=== PATIENT | male | born 1955 | race Caucasian/White ===

== ENCOUNTER 2019-11-19 16:39 | Inpatient (IN) | payer MEDICARE, SELFPAY ==
[2019-11-19 16:53] VITALS: BP 209/123; PULSE 62; RESP 17; TEMP 36.4; O2SAT 99; BMI 24.1
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
--- NOTE | 2019-11-19 16:57 | ECG_ITS ---
Measurements Intervals [employer] Rate: 58 P: 36 DE: 184 QRS: 19 QRSD: 113 T: 42 QT: 411 QTc: 405 SINUS BRADYCARDIA MODERATE INTRAVENTRICULAR CONDUCTION DELAY [110+ ms QRS DURATION] No previous ECG available for comparison Electronically Signed On 11-20-2019 14:59:13 CDT by Sachin Singletary M.D. [email or web address]
--- NOTE | 2019-11-19 16:57 | XRR_ITS ---
PROCEDURE INFORMATION: Exam: XR Chest, 1 View Exam date and time: 11/19/2019 4:58 PM Age: 64 years old Clinical indication: Pain; Shortness of breath; Chest pressure; Additional info: Dyspnea/cough TECHNIQUE: Imaging protocol: XR of the chest Views: 1 view. COMPARISON: No relevant prior studies available. FINDINGS: Lungs: Unremarkable. No consolidation. Pleural space: Unremarkable. No pleural effusion. No pneumothorax. Heart/Mediastinum: Calcified left hilar lymph nodes. Bones/joints: Unremarkable. C-spine hardware. XR/XR chest 1V portable [id number] IMPRESSION: No acute findings.
[2019-11-19 17:34] VITALS: BP 212/105; PULSE 65; RESP 14; O2SAT 99
[2019-11-19] MEDS: aspirin 81 mg Chew Tablet 324 MG PO (17:38)
[2019-11-19] MEDS: amlodipine 5 mg Tablet PO (17:39)
[2019-11-19] MEDS: nitroglycerin 1 gm/inch oint Pkt 1 INCH TOPICAL (17:44)
[2019-11-19 17:48] LABS: Basophils % 0.5 %; Eosinophils % 0.5 %; Hematocrit 41.2 % (42.0-52.0); Hemoglobin 13.6 g/dL (11.7-16.6); Lymphocytes # 0.8 10^3/uL (0.8-4.8); Lymphocytes % 13.8 %; Mean Corpuscular Hemoglobin 29.6 pg (28.0-34.0); Mean Corpuscular Volume 89.6 fL (80-94); Mean Platelet Volume 10.3 fL (7.4-10.4); Monocytes # 0.3 10^3/uL (0.2-0.9); Monocytes % 4.8 %; Neutrophils # 4.9 10^3/uL (1.8-7.7); Neutrophils % 80.2 %; Nucleated Red Blood Cells % 0 %; Platelet Count 193 10^3/cmm (130-400); Red Cell Distribution Width 11.8 % (12.1-15.1); White Blood Count 6.1 10^3/uL (4.0-10.0)
[2019-11-19 18:09] LABS: Alanine Aminotransferase 16 U/L (0-41); Albumin Level 4.2 g/dL (3.5-5.2); Alkaline Phosphatase 79 IU/L (40-130); Anion Gap 14.1 (5-19); Aspartate Amino Transferase 20 U/L (0-40); Blood Urea Nitrogen 7 mg/dL (8-23); Calcium 8.9 mg/dL (8.5-10.5); Carbon Dioxide 27 mmol/L (22-29); Chloride 101 mmol/L (98-107); Creatinine Clr Calc Pharmacy 91.2681; Globulin 2.2 g/dL (1.3-4.6); Glomerular Filtration Rate 84.7 mL/min (90-130); Glucose 103 mg/dL (65-115); Lipase 25 U/L (13-60); Osmolality Calculated 282 mOsm/kg (285-295); Potassium 4.1 mmol/L (3.5-5.1); Sodium 138 mmol/L (136-145); Total Bilirubin 0.8 mg/dL (0.15-1.2); Total Protein 6.4 g/dL (6.6-8.7)
[2019-11-19 18:11] LABS: Troponin(5th) Baseline 7 ng/mL (0-15)
[2019-11-19 18:41] VITALS: BP 196/109; PULSE 64; RESP 13; O2SAT 97
--- NOTE | 2019-11-19 18:57 | ECG_ITS ---
Measurements Intervals [place] Rate: 62 P: 19 NE: 182 QRS: 1 QRSD: 109 T: 32 QT: 413 QTc: 422 SINUS RHYTHM No previous ECG available for comparison Electronically Signed On 11-20-2019 15:02:22 CDT by Sachin Singletary M.D. [email or web address]
[2019-11-19] MEDS: hyDRALAzine 20 mg/mL INJ 1 mL IVP (19:02)
--- NOTE | 2019-11-19 19:33 | CTR_ITS ---
PROCEDURE INFORMATION: Exam: CT Head Without Contrast Exam date and time: 11/19/2019 7:37 PM Age: 64 years old Clinical indication: Dizziness; Additional info: Dizzy TECHNIQUE: Imaging protocol: Computed tomography of the head without contrast. Total DLP: 900.94 mGy-cm Radiation optimization: All CT scans at this facility use at least one of these dose optimization techniques: automated exposure control; mA and/or kV adjustment per patient size (includes targeted exams where dose is matched to clinical indication); or iterative reconstruction. COMPARISON: No relevant prior studies available. FINDINGS: Brain: Mild cortical volume loss. Mild hypodensities in supratentorial periventricular and subcortical white matter. No intracranial hemorrhage. Ventricles: Normal. No ventriculomegaly. Bones/joints: Unremarkable. No acute fracture. Sinuses: Visualized sinuses are unremarkable. No fluid levels. Mastoid air cells: Postsurgical changes of the right mastoid. Soft tissues: Unremarkable. Vasculature: No hyperdense artery. CT/CT head wo con* [id number] IMPRESSION: 1. No acute intracranial abnormality. 2. Mild microangiopathy. Radiation Dose CTDIVOL = (mGy): DLP = 900.94 (mGy-cm)
[2019-11-19 19:41] LABS: Urine Appearance Clear (CLEAR); Urine Color Yellow (Yellow); pH Urine 7 (5-7)
[2019-11-19 19:42] LABS: Add Urine Culture? No; Add Urine Microscopic? YES; Bacteria Urine TRACE; Bilirubin Urine Neg (NEGATIVE); Blood Urine 2+ (Negative); Glucose Urine UA Norm (Normal); Ketones Urine Negative (Negative); Leukocyte Esterase Urine Negative (Negative); Nitrate Urine Negative (Negative); Protein Urine Neg (Negative); Specific Gravity, Urine 1.005 (1.005-1.030); Urobilinogen Urine Norm (Negative)
[2019-11-19 19:47] LABS: Troponin 5 2HR 6.97 ng/mL (0-15)
[2019-11-19 19:48] LABS: Troponin 5 2HR Delta -0.03 ABS# (0-10)
[2019-11-19 21:05] VITALS: BP 155/90; PULSE 92; RESP 20; O2SAT 97
[2019-11-19 21:38] VITALS: BP 151/93; PULSE 80; RESP 20; O2SAT 97
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
--- NOTE | 2019-11-19 22:55 | PC.NURSE ---
EKG done at 2250 and shown to ER doctor.
--- NOTE | 2019-11-19 22:57 | ECG_ITS ---
Measurements Intervals [place] Rate: 85 P: 39 MA: 152 QRS: 23 QRSD: 105 T: 40 QT: 365 QTc: 434 SINUS RHYTHM No previous ECG available for comparison Electronically Signed On 11-20-2019 15:02:28 CDT by Sachin Singletary M.D. [email or web address]
[2019-11-19 23:02] VITALS: BP 148/96; PULSE 93; RESP 15; O2SAT 95
--- NOTE | 2019-11-19 23:06 | CTR_ITS ---
PROCEDURE INFORMATION: Exam: CT Angiography Chest With Contrast Exam date and time: 11/19/2019 11:36 PM Age: 64 years old Clinical indication: Shortness of breath; Prior surgery; Surgery type: Cervical fusion; Patient HX: SOB without chest pain; Additional info: Chest pain dizzy HTN TECHNIQUE: Imaging protocol: Computed tomographic angiography of the chest with intravenous contrast. 3D rendering: MIP and/or 3D reconstructed images were created by the technologist. Total DLP: 568.07 mGy-cm Radiation optimization: All CT scans at this facility use at least one of these dose optimization techniques: automated exposure control; mA and/or kV adjustment per patient size (includes targeted exams where dose is matched to clinical indication); or iterative reconstruction. Contrast material: OMNI 350; Contrast volume: 75 ml; Contrast route: 20G RAC; COMPARISON: CR (CHEST, ) 11/19/2019 5:00 PM FINDINGS: Pulmonary arteries: Left upper lobe prominent pulmonary artery branch appears chronic and may reflect a very small aneurysm measuring approximately 6.3 mm. Aorta: Unremarkable. No aortic aneurysm. No aortic dissection. Lungs: Unremarkable. No consolidation. No masses. Pleural space: Unremarkable. No pneumothorax. No pleural effusion. Heart: Unremarkable. No cardiomegaly. No pericardial effusion. Lymph nodes: Unremarkable. No enlarged lymph nodes. Bones/joints: Unremarkable. No acute fracture. Soft tissues: Unremarkable. CT/CT angio chest PE protcl [id number] IMPRESSION: Negative for pulmonary embolus or airspace infiltrate. Radiation Dose CTDIVOL = (mGy): DLP = 568.07 (mGy-cm)
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
[2019-11-19] MEDS: morphine 4 mg/mL SDV 1 mL 2 MG IVP (23:41)
[2019-11-19] MEDS: ondansetron 2 mg/ML SDV 2 mL 4 MG IVP (23:41)
[2019-11-19] MEDS: iohexol 350 mg/mL 100 mL Btl IV ×2 (23:52→23:59)
[2019-11-20] VITALS (13 sets, daily range): BP systolic 147–182; BP diastolic 81–100; PULSE 60–81; RESP 16–19; TEMP 36.6–37.7; O2SAT 94–99
[2019-11-20 00:17] LABS: Troponin 5 6HR 8.98 ng/mL (0-15); Troponin 5 6HR Delta 1.98 ng/L (0-12)
[2019-11-20] MEDS: morphine 4 mg/mL SDV 1 mL 2 MG IVP ×2 (01:42→09:06)
[2019-11-20] MEDS: enoxaparin 40 mg/0.4 mL Syringe SUBCUT (01:42)
[2019-11-20] MEDS: sodium chloride 0.9% 1,000 ML 75 ML IV (01:43)
[2019-11-20 01:55] LABS: Thyroid Stimulating Hormone 1.12 uIU/mL (0.27-4.20)
--- NOTE | 2019-11-20 04:40 | USCV_ITS ---
Gerg Bernard Age: 64 Gender: M : 1955 Exam Date: 11/20/2019 07:32 Ordering Phys: Celeste Mcdaniels MD Technologist: Olga Mondragon Exam Location: [facility] [place] Indication: Chest pain, dizzy, family history of sudden BP: 152 / 84 HR: 125 Rhythm: Sinus Technical Quality: Fair MEASUREMENTS (Male / Female) Normal Values 2D ECHO LV Diastolic Diameter PLAX 3.9 cm 4.2 - 5.9 / 3.9 - 5.3 cm LV Systolic Diameter PLAX 2.3 cm LV Chamber Size 3.3 cm IVS Diastolic Thickness 1.7 cm 0.6 - 1.0 / 0.6 - 0.9 cm IVS Systolic Thickness 2.2 cm LVPW Diastolic Thickness 1.3 cm 0.6 - 1.0 / 0.6 - 0.9 cm LVPW Systolic Thickness 1.2 cm RV Chamber Size 3.2 cm LVOT Diameter 2.1 cm LV Ejection Fraction 2D Teich 72.6 % LV Ejection Fraction MOD 2C 60.0 % LV Ejection Fraction 2C AL 62.4 % LA Diameter 3.5 cm LA Width 3.5 cm LA Height 3.0 cm RA Width 2.5 cm RA Height 4.3 cm Aorta at Sinotubular Diameter 2.9 cm M-MODE LV Diastolic Diameter MM 5.6 cm 4.2 - 5.9 / 3.9 - 5.3 cm LV Systolic Diameter MM 3.9 cm LV Ejection Fraction MM Teich 56.7 % IVS Diastolic Thickness MM 0.8 cm 0.6 - 1.0 / 0.6 - 0.9 cm IVS Systolic Thickness MM 1.1 cm LVPW Diastolic Thickness MM 1.0 cm 0.6 - 1.0 / 0.6 - 0.9 cm LVPW Systolic Thickness MM 1.8 cm RV Diastolic Diameter MM 1.2 cm Aortic Annulus Diameter 3.7 cm LA Ao Ratio MM 0.9 MV E Point Septal Separation 0.4 cm DOPPLER AV Peak Velocity 113.0 cm/s LVOT Peak Velocity 93.0 cm/s AV Area Cont Eq vti 3.1 cm squared AV Area Cont Eq pk 3.0 cm squared MV Area PHT 2.8 cm squared Mitral E to A Ratio 1.1 MV E' Velocity 10.0 cm/s Mitral E to MV E' Ratio 9.6 Mitral E to LV E' Lateral Ratio 8.1 Mitral E to LV E' Septal Ratio 12.1 TV Peak E Velocity 50.0 cm/s PV Peak Velocity 85.0 cm/s RV Acceleration Time 0.1 s RV Ejection Time 0.3 s RV AcT/ET 0.3 FINDINGS Left Ventricle Normal left ventricular size and systolic function, EF 59 %. No regional wall motion abnormalities. Grade I/IV diastolic dysfunction (abnormal relaxation filling pattern), normal to mildly elevated filling pressures. Right Ventricle Normal right ventricular size and systolic function. Right Atrium The right atrium is normal in size. Left Atrium The left atrium is normal in size. Mitral Valve No gross abnormalities noted Aortic Valve No gross abnormalities noted Tricuspid Valve Trace tricuspid valve regurgitation. Pulmonic Valve Trace pulmonary valve regurgitation. Pericardium No pericardial effusion Aorta Normal ascending aorta dimension. CONCLUSIONS Normal left ventricular size and systolic function, EF 59 %. No regional wall motion abnormalities. Grade I/IV diastolic dysfunction (abnormal relaxation filling pattern), normal to mildly elevated filling pressures. Trace of tricuspid and pulmonic valve regurgitation. There is no pericardial effusion. Pulmonary artery systolic pressure is within normal limits. There are no intracardiac masses. No previous study is available for comparison. Dr Sachin Singletary MD FACC (Electronically Signed) Final Date: 20 November 2019 10:24 S
[2019-11-20] MEDS: HYDROcodone-acetaminophen 5-325 mg Tablet 1 TAB PO ×2 (04:46→16:04)
[2019-11-20 05:50] LABS: Magnesium 2.2 mg/dL (1.7-2.3)
[2019-11-20 06:04] LABS: Chol HDL Ratio 3.17 mg/dL (1.0-5.00); Cholesterol 165 mg/dL (0-200); HDL Cholesterol 52 mg/dL (60-100); LDL Cholesterol Calculated 102 mg/dL (50-129); LDL HDL Ratio 1.96 RATIO (0.00-3.22); NT Pro B Type Natriuretic Pept 291 pg/mL (0-125); Triglycerides 57 mg/dL (0-150)
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
[2019-11-20] MEDS: famotidine 20 mg Tablet PO (09:07)
[2019-11-20] MEDS: amlodipine 5 mg Tablet PO (09:08)
[2019-11-20] MEDS: aspirin 325 mg Tablet PO (09:08)
--- NOTE | 2019-11-20 11:39 | PM.PN ---
Subjective Subjective: Interval history: Chart reviewed, patient seen with Dr. Singletary, imaging reviewed. BP improved though still hypertensive, on RA, afebrile. Reports feeling better this AM. Orthostatics negative. Medications: Reviewed: Yes Medication Review Details: Active Medications Generic Name Dose Route Start Last Admin Trade Name Freq PRN Reason Stop Dose Admin Acetaminophen 650 mg 11/20/19 00:42 Tylenol PO Q6H PRN Mild/Mod Pain Or Temp >/= 101 Hydrocodone Bitart /Acetaminophen 1 tab 11/20/19 00:42 11/20/19 04:46 [place] 5-325 Mg PO 1 tab Q4H PRN Administration MODERATE TO SEVER E PAIN Amlodipine Besylat e 5 mg 11/20/19 09:00 11/20/19 09:08 Norvasc PO 5 mg DAILY FLAQUITO Administration Aspirin 325 mg 11/20/19 09:00 11/20/19 09:08 Aspirin PO 325 mg DAILY FLAQUITO Administration Bisacodyl 10 mg 11/20/19 00:42 Dulcolax PO DAILY PRN CONSTIPATION Calcium Carbonate 1,000 mg 11/20/19 00:42 Tums PO Q4H PRN DYSPEPSI Enoxaparin Sodium 40 mg 11/20/19 00:42 11/20/19 01:42 Lovenox SUBCUT 40 mg Q24H FLAQUITO Administration Famotidine 20 mg 11/20/19 09:00 11/20/19 09:07 Pepcid Tab PO 20 mg DAILY FLAQUITO Administration Sodium Chloride 1,000 mls @ 75 ml s/hr 11/20/19 00:42 11/20/19 01:43 Sodium Chloride 0.9% IV 11/20/19 14:01 75 mls/hr .[id number] FLAQUITO Administration Morphine Sulfate 2 mg 11/20/19 00:42 11/20/19 09:06 Morphine IVP 2 mg Q4H PRN Administration SEVERE PAIN Ondansetron HCl 4 mg 11/20/19 00:42 Zofran IVP Q8H PRN vomiting, or N/V if npo No Known Allergies Allergy (Verified 11/19/19 16:58) Vitals/I&O/Wt Last Vital Signs Temp 98.4 F 11/20/19 11:12 Pulse 70 11/20/19 11:12 Resp 18 11/20/19 11:12 BP 172/87 11/20/19 11:12 Pulse Ox 94 11/20/19 11:12 11/19/19 11/20/19 11/20/19 22:59 06:59 14:59 Intake Total 120 / 120 Balance 120 / 120 Weight last 48 hrs Weight 80.739 kg Physical Exam Const: COMMON NORMALS: no apparent distress and oriented x3 GENERAL APPEARANCE: cooperative and comfortable ORIENTATION/CONSCIOUSNESS: Yes awake HENMT: COMMON NORMALS: normocephalic, head/scalp atraumatic, hearing grossly normal bilaterally and moist oral mucous membranes HEAD & SCALP: normocephalic and atraumatic TEETH & GINGIVA: Yes poor dentition Eye: COMMON NORMALS: PERRL, EOMs intact bilaterally and conjunctivae normal CONJUNCTIVA: Yes conjunctivae normal PUPIL: Yes PERRL Neck/C-Spine: COMMON NORMALS: full ROM and no carotid bruits GENERAL: Yes normal visual inspection and Yes trachea midline Resp: COMMON NORMALS: normal respiratory effort, no retractions, no use of accessory muscles and clear to auscultation bilaterally EFFORT & INSPECTION: Yes able to speak in complete sentences, Yes symmetric chest movement and No tachypneic AUSCULTATION: clear to auscultation bilaterally Cardio: COMMON NORMALS: regular rate, regular rhythm, S1 normal heart sound, S2 normal heart sound and no murmurs RATE: regular rate RHYTHM: regular rhythm HEART SOUNDS: S1 normal and S2 normal GI: COMMON NORMALS: normal to inspection, nondistended, normoactive bowel sounds, soft to palpation and non-tender PALPATION: Yes soft Extremity: COMMON NORMALS: normal to inspection, full ROM, no clubbing, cyanosis or edema and no pedal edema Neuro: COMMON NORMALS: oriented x3, moves all extremities, no focal motor deficits, no sensory deficits noted and gait normal Psych: COMMON NORMALS: mental status grossly normal, thought process normal, cooperative, affect normal and speech normal SPEECH: Yes normal speech THOUGHT PROCESS: normal thought process Skin: COMMON NORMALS: no jaundice, no petechiae and no mottling LESIONS: lesion noted (L hand (dorsum)) raised, ulcerated Data : 11/19/19 17:35 11/19/19 17:35 A&P Assessment and plan (1) Dizziness: -sudden onset, no change in tinnitus (chronic), no neuro deficits, no syncope -imaging including CT head, CTA H/N noted the latter of which shows mild 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 Singletary appreciated -quite hypertensive on presentation; improving -LARRY -noted TSH, lipid panel Status: Acute Qualifiers: Chest pain type: precordial pain Qualified Code(s): R07.2 - Precordial pain (3) Hypertension: -no prior dx of HTN but presented with hypertensive urgency -BP is improving but not at goal -on Amlodipine, may need addition of additional antihypertensives for more optimal control -continue to monitor vital signs Status: Acute Qualifiers: Hypertension type: unspecified Qualified Code(s): I10 - Essential (primary) hypertension (4) Resting tremor: Status: Chronic (5) Skin ulcer of hand: -L hand Status: Chronic Qualifiers: Non-pressure ulcer stage: unspecified non-pressure ulcer stage Qualified Code(s): L98.499 - Non-pressure chronic ulcer of skin of other sites with unspecified severity (6) 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 Time Spent in Patient Care: Greater than 35 minutes (>than 50% of time spent in counselling and/or direct pt care on unit). 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
--- NOTE | 2019-11-20 13:14 | PC.CHAP ---
Pastoral Care Encounter/Spiritual Assessment Type of Contact [] Declined warehouse shift supervisor visit [] Patient/Family/Request visit [] Outpatient visit [] Follow-up visit [] Physician referral [] Code/Alert [X] Routine visit [] Staff referral [] Actively dying [] Patient sleeping [] Family support [] [] Out of room [] Palliative care [] [] Receiving care in room [] Pre-surgical visit [] Trauma [] Long length of stay [] ICU visit [] Other: Relational/Emotional Strength [] Patient feels connected with others/family/visitors/staff [] Distress [] Loneliness/isolation [] Abandonment Spirituality of Patient [] Person of Tierra [] Attends Spiritism of their [place] [] Believes in Prayer [] Reads Bible or Jain materials [] There are Spiritual issues to be addressed Fashion Adviser Interventions [] Prayer [] Active listening [] Non-anxious presence [] Spiritual/emotional support [] Crisis/trauma care [] Spiritual counseling [] Bereavement support [] Provided bereavement packet [] Provided Bible/devotional materials [] Provided toy/stuffed animal, coloring book to patient or family member [] Provided Communion [] Anointing/[place] [] Salvation [] Completed spiritual assessment [] Other: Impact on Illness or Injury [] Angry [] Fearful [] Anxious [] Often cries [] Exhaustion [] Unable to work [] Unable to attend muslim [] Unable to walk/stand [] Unable to read [] Unable to drive [] Unable to eat/drink [] Unable to sleep [] Unable to be with family [] Patient intubated [] Other: Summary Time spent with patient
[2019-11-20] MEDS: ondansetron 2 mg/ML SDV 2 mL 4 MG IVP (14:24)
[2019-11-20] MEDS: carvedilol 12.5 mg Tablet PO (15:59)
[2019-11-20] MEDS: acetaminophen 325 mg Tablet 650 MG PO (21:02)
[2019-11-21] VITALS (7 sets, daily range): BP systolic 132–176; BP diastolic 72–98; PULSE 50–64; RESP 16–18; TEMP 36.7–36.9; O2SAT 94–98
[2019-11-21] MEDS: enoxaparin 40 mg/0.4 mL Syringe SUBCUT (00:49)
[2019-11-21] MEDS: HYDROcodone-acetaminophen 5-325 mg Tablet 1 TAB PO ×2 (04:08→22:43)
[2019-11-21] MEDS: calcium carbonate 500 mg Chew Tablet 1000 MG PO (04:09)
[2019-11-21] MEDS: aspirin 325 mg Tablet PO (09:32)
[2019-11-21] MEDS: carvedilol 6.25 mg Tablet PO ×2 (09:32→18:25)
[2019-11-21] MEDS: meclizine 25 mg tablet PO ×2 (09:32→18:25)
[2019-11-21] MEDS: amlodipine 10 mg Tablet PO (09:32)
[2019-11-21] MEDS: famotidine 20 mg Tablet PO (09:32)
--- NOTE | 2019-11-21 09:42 | P.PN_ITS ---
Subjective Subjective: Interval history: The patient continues to have the dizziness. However his chest symptoms are much better. The blood pressure seems to be getting better. He was started on carvedilol this morning. Medications: Reviewed: Yes Medication Review Details: Active Medications Generic Name Dose Route Start Last Admin Trade Name Freq PRN Reason Stop Dose Admin Acetaminophen 650 mg 11/20/19 00:42 Tylenol PO Q6H PRN Mild/Mod Pain Or Temp >/= 101 Hydrocodone Bitart /Acetaminophen 1 tab 11/20/19 00:42 11/20/19 04:46 [place] 5-325 Mg PO 1 tab Q4H PRN Administration MODERATE TO SEVER E PAIN Amlodipine Besylat e 5 mg 11/20/19 09:00 11/20/19 09:08 Norvasc PO 5 mg DAILY FLAQUITO Administration Aspirin 325 mg 11/20/19 09:00 11/20/19 09:08 Aspirin PO 325 mg DAILY FLAQUITO Administration Bisacodyl 10 mg 11/20/19 00:42 Dulcolax PO DAILY PRN CONSTIPATION Calcium Carbonate 1,000 mg 11/20/19 00:42 Tums PO Q4H PRN DYSPEPSI Enoxaparin Sodium 40 mg 11/20/19 00:42 11/20/19 01:42 Lovenox SUBCUT 40 mg Q24H FLAQUITO Administration Famotidine 20 mg 11/20/19 09:00 11/20/19 09:07 Pepcid Tab PO 20 mg DAILY FLAQUITO Administration Sodium Chloride 1,000 mls @ 75 ml s/hr 11/20/19 00:42 11/20/19 01:43 Sodium Chloride 0.9% IV 11/20/19 14:01 75 mls/hr .[id number] FLAQUITO Administration Morphine Sulfate 2 mg 11/20/19 00:42 11/20/19 09:06 Morphine IVP 2 mg Q4H PRN Administration SEVERE PAIN Ondansetron HCl 4 mg 11/20/19 00:42 Zofran IVP Q8H PRN vomiting, or N/V if npo No Known Allergies Allergy (Verified 11/19/19 16:58) Vitals/I&O/Wt Last Vital Signs Temp 98.4 F 11/21/19 04:00 Pulse 54 L 11/21/19 07:42 Resp 18 11/21/19 07:42 BP 176/85 11/21/19 07:42 Pulse Ox 97 11/21/19 07:42 11/20/19 11/21/19 11/21/19 22:59 06:59 14:59 Intake Total 1100 / 1340 120 / 1460 Balance 1100 / 1340 120 / 1460 Weight last 48 hrs Weight 178 lb Physical Exam Narrative: EXAM NARRATIVE: GENERAL: The patient is alert and oriented times three. Not in any acute distress. HEENT: Minimal pallor,no icterus or lymphadenopathy. The pupils are reactant to light. Oral cavity: There are no mucous membrane lesions. NECK: Trachea appears to be central. No masses noted. No JVD or thyromegaly appreciated. No carotid bruit. RESPIRATORY: Chest is symmetrical. No intercostals muscle retraction or any accessory muscle activation. There is no chest wall tenderness. Breath sounds are heard bilaterally. No rales or rhonchi heard. No evidence of any consolidation. BREASTS: Deferred. HEART: The PMI is in the 5th left intercostals space just inside the midclavicular line. No palpable precordial events. S1 and S2 are normal. No S3 or S4 heard. No pericardial rub or any click heard. ABDOMEN: No vessel pulsations or distention. No tenderness. No organomegaly appreciated. No abdominal bruit. Bowel sounds are normally heard. : Deferred. RECTAL: Deferred. LYMPHATIC: No lymphadenopathy noted in the neck or groin. EXTREMITIES: No edema or cyanosis. No clubbing. The pulses are symmetrical bilaterally. The radial, femoral, dorsalis pedis and the posterior tibial pulses are palpated and found to be in good volume and amplitude. MUSCULOSKELETAL: Gait is normal. There is no joint deformity or swelling noted. No joint tenderness or any effusion. The shoulder and hip joints appear to have normal range of motion. SKIN: There are no significant scars or skin rash noted. NEUROPSYCHIATRIC: The patient is alert and oriented x3. Appears to be in a good mood. The higher functions are grossly within normal limits. No tremors or rigidity noted. Data : 11/19/19 17:35 11/19/19 17:35 Other data: CTA of the neck from 11/19/2019 revealed 1. Mild stenoses of the proximal right ICA and proximal right vertebral artery. 2. Left apical 8 mm nodule. Correlate with prior imaging if available, or consider CT scan of the thorax for further evaluation. A&P Assessment and plan (1) Tightness in chest: The etiology is unclear. The accelerated hypertension, could be contributing factor. Currently he is pain-free. Possibility of underlying coronary ischemia causing this also is a consideration. He has no EKG evidence of any acute ischemia. No evidence any myocardial jury, based on the blood test. The echocardiogram was unremarkable with no evidence of any significant wall motion normalities. For further evaluation of the patient's symptoms, a myocardial perfusion imaging would be appropriate. Status: Acute (2) Dizziness: The dizziness seems to be the major symptom at this time. Most likely is related to vestibular dysfunction. Patient has a history of ringing in the ears. His symptoms are not associated with any postural changes. Status: Acute (3) Accelerated hypertension: The blood pressure seems to be getting under control. May continue on the carvedilol. The dose may be titrated up for better blood pressure control Status: Acute Additional A&P Information If the patient continues to remain stable, may be discharged from a cardiac standpoint. Need to schedule for a myocardial perfusion imaging namely Lexiscan/sestamibi/sestamibi stress test as an outpatient. Please make an appointment to be seen in the office by me in 1 month Attestations Medical Necessity Statement*: Disposition as per the primary. Coding Level of Care Code Acute Blanchard Grinder Operator for Chg Mauricio Diagnoses Tightness in chest R07.89 Dizziness R42 Accelerated hypertension I10
--- NOTE | 2019-11-21 15:53 | P.PN_ITS ---
Subjective Subjective: Interval history: Patient seen and examined, reports feeling better today, has been able to eat better and ambulate with minimal dizziness. Overnight was noted to have an episode of nausea and vomiting associated with increased dizziness. Blood pressure is improved today with noted intermittent bradycardia so decreased dose of beta-storm. PT recommends vestibular screen with certified PT tomorrow. Medications: Reviewed: Yes Medication Review Details: Active Medications Generic Name Dose Route Start Last Admin Trade Name Freq PRN Reason Stop Dose Admin Acetaminophen 650 mg 11/20/19 00:42 11/20/19 21:02 Tylenol PO 650 mg Q6H PRN Administration Mild/Mod Pain Or Temp >/= 101 Hydrocodone Bitart /Acetaminophen 1 tab 11/20/19 15:58 11/21/19 04:08 [place] 5-325 Mg PO 1 tab Q4H PRN Administration MODERATE PAIN Amlodipine Besylat e 10 mg 11/21/19 09:00 11/21/19 09:32 Norvasc PO 10 mg DAILY FLAQUITO Administration Aspirin 325 mg 11/20/19 09:00 11/21/19 09:32 Aspirin PO 325 mg DAILY FLAQUITO Administration Bisacodyl 10 mg 11/20/19 00:42 Dulcolax PO DAILY PRN CONSTIPATION Calcium Carbonate 1,000 mg 11/20/19 00:42 11/21/19 04:09 Tums PO 1,000 mg Q4H PRN Administration DYSPEPSI Carvedilol 6.25 mg 11/21/19 09:05 11/21/19 09:32 Coreg PO 6.25 mg BID FLAQUITO Administration Enoxaparin Sodium 40 mg 11/20/19 00:42 11/21/19 00:49 Lovenox SUBCUT 40 mg Q24H FLAQUITO Administration Famotidine 20 mg 11/20/19 09:00 11/21/19 09:32 Pepcid Tab PO 20 mg DAILY FLAQUITO Administration Meclizine HCl 25 mg 11/21/19 09:01 11/21/19 09:32 Antivert PO 25 mg TID PRN Administration DIZZINESS Morphine Sulfate 2 mg 11/20/19 00:42 11/20/19 09:06 Morphine IVP 2 mg Q4H PRN Administration SEVERE PAIN Ondansetron HCl 4 mg 11/20/19 20:06 Zofran IVP Q6H PRN vomiting, or N/V if npo No Known Allergies Allergy (Verified 11/19/19 16:58) Vitals/I&O/Wt Last Vital Signs Temp 98.2 F 11/21/19 15:37 Pulse 51 L 11/21/19 15:37 Resp 18 11/21/19 15:37 BP 145/73 11/21/19 15:37 Pulse Ox 98 11/21/19 15:37 11/21/19 11/21/19 11/21/19 06:59 14:59 22:59 Intake Total 120 / 1460 240 / 240 Balance 120 / 1460 240 / 240 Weight last 48 hrs Weight 80.739 kg Physical Exam Const: COMMON NORMALS: no apparent distress and oriented x3 GENERAL APPEARANCE: cooperative and comfortable ORIENTATION/CONSCIOUSNESS: Yes awake HENMT: COMMON NORMALS: normocephalic, head/scalp atraumatic, hearing grossly normal bilaterally and moist oral mucous membranes HEAD & SCALP: normocephalic and atraumatic TEETH & GINGIVA: Yes poor dentition Eye: COMMON NORMALS: PERRL, EOMs intact bilaterally and conjunctivae normal CONJUNCTIVA: Yes conjunctivae normal PUPIL: Yes PERRL Neck/C-Spine: COMMON NORMALS: full ROM and no carotid bruits GENERAL: Yes normal visual inspection and Yes trachea midline Resp: COMMON NORMALS: normal respiratory effort, no retractions, no use of accessory muscles and clear to auscultation bilaterally EFFORT & INSPECTION: Yes able to speak in complete sentences, Yes symmetric chest movement and No tachypneic AUSCULTATION: clear to auscultation bilaterally Cardio: COMMON NORMALS: regular rate, regular rhythm, S1 normal heart sound, S2 normal heart sound and no murmurs RATE: regular rate RHYTHM: regular rhythm HEART SOUNDS: S1 normal and S2 normal GI: COMMON NORMALS: normal to inspection, nondistended, normoactive bowel sounds, soft to palpation and non-tender PALPATION: Yes soft Extremity: COMMON NORMALS: normal to inspection, full ROM, no clubbing, cyanosis or edema and no pedal edema Neuro: COMMON NORMALS: oriented x3, moves all extremities, no focal motor deficits, no sensory deficits noted and gait normal Psych: COMMON NORMALS: mental status grossly normal, thought process normal, cooperative, affect normal and speech normal SPEECH: Yes normal speech THOUGHT PROCESS: normal thought process Skin: COMMON NORMALS: no jaundice, no petechiae and no mottling LESIONS: lesion noted (L hand (dorsum)) Data : 11/19/19 17:35 11/19/19 17:35 A&P Assessment and plan (1) Dizziness: -sudden onset, no change in tinnitus (chronic), no neuro deficits, no syncope -imaging including CT head, CTA H/N noted the latter of which shows mild st enosis of proximal R ICA and proximal R verterbral artery -fall precautions -on IVF x 1 L -seems to be consistent with vestibulitis; meclizine PRN, certified PT to see tomorrow Status: Acute (2) Chest pain: -troponins noted, no significant delta -telemetry monitoring -has FHx of CAD but no prior personal hx of this -Echo: EF=59%, no RWMA, G1DD, trace TR, trace DE -Cardiology evaluation by Dr. Singletary appreciated -quite hypertensive on presentation; improving -LARRY -noted TSH, lipid panel -nuclear stress testing tomorrow Status: Acute Qualifiers: Chest pain type: precordial pain Qualified Code(s): R07.2 - Precordial pain (3) Hypertension: -no prior dx of HTN but presented with hypertensive urgency -BP is improving but not at goal -on Amlodipine and Coreg, may need addition of additional antihypertensives for more optimal control -continue to monitor vital signs Status: Acute Qualifiers: Hypertension type: unspecified Qualified Code(s): I10 - Essential (primary) hypertension (4) Resting tremor: Status: Chronic (5) Skin ulcer of hand: -L hand Status: Chronic Qualifiers: Non-pressure ulcer stage: unspecified non-pressure ulcer stage Qualified Code(s): L98.499 - Non-pressure chronic ulcer of skin of other sites with unspecified severity (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 Time Spent in Patient Care: 16 - 35 minutes (>than 50% of time spent in counselling and/or direct pt care on unit) . Coding Level of Care Code Acute Technician'S Helper for Chg Fwd Diagnoses Dizziness R42 Chest pain R07.2 Chest pain type: precordial pain Hypertension I10 Hypertension type: unspecified Resting tremor G25.2 Skin ulcer of hand L98.499 Non-pressure ulcer stage: unspecified non-pressure ulcer stage Facial paralysis on right side G51.0 Chronic neck pain M54.2; G89.29
[2019-11-22] VITALS (8 sets, daily range): BP systolic 129–176; BP diastolic 75–91; PULSE 52–89; RESP 18; TEMP 36.4–36.5; O2SAT 96–99
[2019-11-22] MEDS: enoxaparin 40 mg/0.4 mL Syringe SUBCUT (00:24)
--- NOTE | 2019-11-22 04:48 | ECG_ITS ---
NAME OF STUDY: LEXISCAN SESTAMIBI STRESS TEST INDICATION: ACCELERATED HTN/CHEST PAIN, PROCEDURE: At the baseline, the EKG revealed sinus bradycardia with a rate of [address]-T's. The baseline blood pressure was 150/95 mm Hg with a heart rate of 54 beats/min. Lexiscan was infused over a period of 20 seconds. A total of 0.4 milligrams of Lexiscan was infused. The stress phase was continued for a total of 5 minutes. Heart rate at the end of the stress phase was 97 with a blood pressure 169/90. The EKG at the peak infusion revealed no significant changes. Sestamibi was injected 20 seconds after the Lexiscan infusion. Blood pressure at the end of the recovery phase was 165/91 with a heart rate of 88 per minute. CONCLUSION: 1. No significant EKG changes with the LexiScan infusion 2. No LexiScan induced chest pain or cardiac arrhythmia 3. Normal blood pressure and heart rate response 4. Sestamibi/sestamibi perfusion scan pending; see separate report. Electronically Signed On 11-22-2019 8:42:52 CDT by Sachin Singletary M.D. [email or web address]
--- NOTE | 2019-11-22 07:15 | NMCV_ITS ---
NM puma perf SPECT r/s* [id number] Greg Bernard Age: 64 Gender: M : 1955 Exam Date: 11/22/2019 07:50 Ordering Phys: Katia Romero MD Technologist: REYNA Killian Exam Location: [facility] Indications: DIZZY STRESS TEST Please see separate stress test report in [facility] for full findings IMAGE PROTOCOL Rest/Stress 1 Lexiscan Day Radiopharmaceutical Dose (mCi) Administration Site Administered by Rest: Tc-99m 10.9 IV Ivis Todd PUBLIC HEALTH EDUCATOR Sestamibi Stress:Tc-99m 32.7 IV Ivis Todd, PUBLIC HEALTH EDUCATOR Sestamibi Rest: 22-Nov-2019 60 Discovery 630 Stress: 22-Nov-2019 30 Discovery 630 0.4mg Lexiscan. Images obtained in supine and prone position. SPECT RESULTS Technical Quality: Excellent Raw Data Analysis: Normal Image Corrections: No attenuation or motion correction applied Summed Stress Score: 4 Summed Rest Score: 8 Summed Difference Score: 0 PERFUSION FINDINGS A small to moderate area of persistent decreasd tracer uptake in the inferior and inferoseptal region, with no significant reversibility FUNCTIONAL RESULTS (calculated via Gated SPECT) Stress Image LV EF (%): 65 Stress EDV (mL):92 TID: 1 Stress ESV (mL):32 FUNCTIONAL FINDINGS: Segmental wall motion analysis revealing no gross wall motion normalities IMPRESSIONS 1. Myocardial perfusion imaging revealing a small to moderate area of persistent decreased tracer uptake in the inferior and inferoseptal region, suggestive of myocardial scarring versus attenuation artifact. 2. Normal LV ejection fraction of 65%. 3. LV wall motion analysis revealing no wall motion normalities. 4. Normal LV volume. No significant coronary ischemia, based on the above findings Dr Sachin Singletary MD FACC (Electronically Signed) Final Date: 22 November 2019 10:24 S
[2019-11-22] MEDS: regadenoson 0.4 Mg/5 ml Syringe IVP (08:25)
--- NOTE | 2019-11-22 08:41 | PC.NURSE ---
THE PATIENT'S DAUGHTER, NAN, CALLED PER PATIENT REQUEST TO UPDATE ON THE STATUS OF HIS STRESS TEST.
[2019-11-22] MEDS: losartan 50 mg Tablet PO (10:12)
[2019-11-22] MEDS: famotidine 20 mg Tablet PO (10:12)
[2019-11-22] MEDS: amlodipine 10 mg Tablet PO (10:12)
[2019-11-22] MEDS: aspirin 325 mg Tablet PO (10:12)
[2019-11-22] MEDS: carvedilol 6.25 mg Tablet PO (10:13)
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
--- NOTE | 2019-11-22 11:56 | PM.PN ---
Subjective Subjective: Interval history: Patient has not had any significant chest tightness or shortness of breath since since yesterday. His dizziness is slightly improving. Blood pressure also seems to be getting under control. He had some bradycardia with a higher dose of beta-storm. Currently he is on carvedilol 6.25 mg p.o. twice daily. Medications: Medication Review Details: Current Medications Acetaminophen (Tylenol) 650 mg PO Q6H PRN PRN Reason: Mild/Mod Pain Or Temp >/= 101 Last Admin: 11/20/19 21:02 Dose: 650 mg Documented by: Hydrocodone Bitart/Acetaminophen ([place] 5-325 Mg) 1 tab PO Q4H PRN PRN Reason: MODERATE PAIN Last Admin: 11/21/19 22:43 Dose: 1 tab Documented by: Aminophylline (Aminophylline) 25 mg IVP Q2M PRN PRN Reason: see dose instructions Stop: 11/23/19 07:29 Amlodipine Besylate (Norvasc) 10 mg PO DAILY [facility] Last Admin: 11/22/19 10:12 Dose: 10 mg Documented by: Aspirin (Aspirin) 325 mg PO DAILY [facility] Last Admin: 11/22/19 10:12 Dose: 325 mg Documented by: Bisacodyl (Dulcolax) 10 mg PO DAILY PRN PRN Reason: CONSTIPATION Calcium Carbonate (Tums) 1,000 mg PO Q4H PRN PRN Reason: DYSPEPSI Last Admin: 11/21/19 04:09 Dose: 1,000 mg Documented by: Carvedilol (Coreg) 6.25 mg PO BID [facility] Last Admin: 11/22/19 10:13 Dose: 6.25 mg Documented by: Enoxaparin Sodium (Lovenox) 40 mg SUBCUT Q24H [facility] Last Admin: 11/22/19 00:24 Dose: 40 mg Documented by: Famotidine (Pepcid Tab) 20 mg PO DAILY [facility] Last Admin: 11/22/19 10:12 Dose: 20 mg Documented by: Losartan Potassium (Cozaar) 50 mg PO DAILY [facility] Last Admin: 11/22/19 10:12 Dose: 50 mg Documented by: Meclizine HCl (Antivert) 25 mg PO TID PRN PRN Reason: DIZZINESS Last Admin: 11/21/19 18:25 Dose: 25 mg Documented by: Morphine Sulfate (Morphine) 2 mg IVP Q4H PRN PRN Reason: SEVERE PAIN Last Admin: 11/20/19 09:06 Dose: 2 mg Documented by: Nitroglycerin (Nitrostat) 0.4 mg SUBLINGUAL Q5M PRN PRN Reason: CHEST PAIN Stop: 11/23/19 07:29 Ondansetron HCl (Zofran) 4 mg IVP Q6H PRN PRN Reason: vomiting, or N/V if npo Ondansetron HCl (Zofran) 4 mg IVP Q2M PRN PRN Reason: NAUSEA Vitals/I&O/Wt Last Vital Signs Temp 97.7 F 11/22/19 07:43 Pulse 82 11/22/19 11:28 Resp 18 11/22/19 07:43 BP 155/87 11/22/19 10:12 Pulse Ox 98 11/22/19 11:28 11/21/19 11/22/19 11/22/19 22:59 06:59 14:59 Intake Total 420 / 660 Balance 420 / 660 Physical Exam Narrative: EXAM NARRATIVE: GENERAL: The patient is alert and oriented times three. Not in any acute distress. HEENT: Minimal pallor,no icterus or lymphadenopathy. NECK: Trachea appears to be central. No masses noted. No JVD or thyromegaly appreciated. No carotid bruit. RESPIRATORY: Chest is symmetrical. No intercostals muscle retraction or any accessory muscle activation. There is no chest wall tenderness. Breath sounds are heard bilaterally. No rales or rhonchi heard. No evidence of any consolidation. BREASTS: Deferred. HEART: The PMI is in the 5th left intercostals space just inside the midclavicular line. No palpable precordial events. S1 and S2 are normal. No S3 or S4 heard. No pericardial rub or any click heard. ABDOMEN: No vessel pulsations or distention. No tenderness. No organomegaly appreciated. No abdominal bruit. Bowel sounds are normally heard. : Deferred. RECTAL: Deferred. LYMPHATIC: No lymphadenopathy noted in the neck or groin. EXTREMITIES: No edema or cyanosis. No clubbing. The pulses are symmetrical bilaterally. The radial, femoral, dorsalis pedis and the posterior tibial pulses are palpated and found to be in good volume and amplitude. MUSCULOSKELETAL: Gait is normal. There is no joint deformity or swelling noted. No joint tenderness or any effusion. The shoulder and hip joints appear to have normal range of motion. SKIN: There are no significant scars or skin rash noted. NEUROPSYCHIATRIC: The patient is alert and oriented x3. Appears to be in a good mood. The higher functions are grossly within normal limits. No tremors or rigidity noted. Data : 11/19/19 17:35 11/19/19 17:35 Myocardial perfusion imaging: My impression: 1. Myocardial perfusion imaging revealing a small to moderate area of persistent decreased tracer uptake in the inferior and inferoseptal region, suggestive of myocardial scarring versus attenuation artifact. 2. Normal LV ejection fraction of 65%. 3. LV wall motion analysis revealing no wall motion normalities. 4. Normal LV volume. A&P Assessment and plan (1) Tightness in chest: I discussed with the patient, the implication of the test findings. Since he has no evidence of ischemia, based on the perfusion scan, chances of having any significant coronary artery disease is very low. This was discussed in detail which he understood well. The limitations of this test also were discussed. If he continues to have chest tightness or shortness of breath, we may consider doing a cardiac catheterization. Status: Acute (2) Dizziness: The dizziness seems to be the major symptom at this time. Most likely is related to vestibular dysfunction. Patient has a history of ringing in the ears. His symptoms are not associated with any postural changes. Patient is getting physical therapy. Symptoms are improving. Status: Acute (3) Accelerated hypertension: Patient was started on losartan this morning. Because of the bradycardia, it may be appropriate to stay on the current dose of carvedilol. Status: Acute Additional A&P Information If the patient continues to remain stable, may be discharged from a cardiac standpoint. I may see him in the office in [address] John Attnithyaations Medical Necessity Statement*: Disposition as per the primary Coding Level of Care Code Acute Coal Washer for Sheyla Martínez Diagnoses Tightness in chest R07.89 Dizziness R42 Accelerated hypertension I10
== END 2019-11-22 14:15 | disposition home or self-care (01) | DRG 305 ==
LOC: ER 19:33 → MEDSURG 23:24
PROVIDERS: Family Medicine; Admitting Provider Hospitalist; Emergency Provider Emergency Medicine; Visit Provider Student in an Organized Health Care Education/Training Program
DX: I16.0 Hypertensive urgency (principal); G51.0 Bell's palsy; G89.29 Other chronic pain; L98.499 Non-pressure chronic ulcer of skin of other sites with unspecified severity; Z79.82 Long term (current) use of aspirin; I65.01 Occlusion and stenosis of right vertebral artery; I65.21 Occlusion and stenosis of right carotid artery; I10 Essential (primary) hypertension; M54.2 Cervicalgia; Z87.891 Personal history of nicotine dependence
CPT/HCPCS: 12345; 36415; 70450; 70496; 70498; 71045; 71275; 78452; 80053; 80061; 81001; 83690; 83735; 83880; 84443; 84484; 85025; 93005; 93017; 93306; 96372; 96374; 96375; 97112; 97161; 99283; A9500; G0378; J0360; J1650; J2270; J2405; J2785; J7030; J8597; Q9967

== ENCOUNTER → 2021-12-27 16:40 | Outpatient (BNVA) | payer MEDICARE, SELFPAY | PROVIDERS: Visit Provider Family Medicine | DX: Z00.00 Encounter for general adult medical examination without abnormal findings (principal); G62.9 Polyneuropathy, unspecified; G89.4 Chronic pain syndrome; I10 Essential (primary) hypertension | CPT/HCPCS: 80053; 80061 ==

== ENCOUNTER → 2022-12-31 12:28 | Outpatient (BNVA) | payer MEDICARE, SELFPAY | PROVIDERS: PCP Family Medicine; Visit Provider Family Medicine | DX: G51.0 Bell's palsy (principal); I10 Essential (primary) hypertension; Z13.6 Encounter for screening for cardiovascular disorders | CPT/HCPCS: 80053; 80061 ==